=== PATIENT | female | born 1955 | race Caucasian/White ===

== ENCOUNTER 2017-09-09 07:44 | Day surgery (SDC) | payer OTHER ==
[~2017-09-09] VITALS: Ht 149.9 cm; Wt 116.1 kg
[~2017-09-09 07:44] MED LIST: ACEBUTCAFT PO; AMIT25 PO; CHOL10002 PO; CLON.2 PO; CYCL10 PO; DIAZ2 PO; DULO30 PO; FURO40 PO; GABA600 PO; HYDACE5 PO; HYDACE5325 PO; HYDCHL25 PO; IBUP800 PO; LISI20 PO; META800 PO; METO50 PO; METO50ER PO; POTA10T PO
[2018-07-17] MEDS ORDERED: Norco 5-325 Ta1 EACH PO (21:17)
== END 2017-09-09 10:20 | disposition home or self-care (01) ==
LOC: ORSCMMR 07:44
PROVIDERS: Surgery
PROC: 0DBL8ZX Excision of Transverse Colon, Via Natural or Artificial Opening Endoscopic, Diagnostic (ICD-10-PCS; principal; 2017-09-09 09:30)
PROC: 0DBH8ZX Excision of Cecum, Via Natural or Artificial Opening Endoscopic, Diagnostic (ICD-10-PCS; principal; 2017-09-09 09:30)
DX: R19.4 Change in bowel habit (principal); K92.1 Melena; D12.0 Benign neoplasm of cecum; D12.3 Benign neoplasm of transverse colon; K64.8 Other hemorrhoids; I10 Essential (primary) hypertension; G47.33 Obstructive sleep apnea (adult) (pediatric); N18.9 Chronic kidney disease, unspecified; E66.01 Morbid (severe) obesity due to excess calories; Z68.43 Body mass index [BMI] 50.0-59.9, adult
CPT/HCPCS: 88305; J7120

== ENCOUNTER → 2017-12-13 | Outpatient (CLI) | payer OTHER | LOC: LAB SHORT 17:13 → LAB 17:13 | DX: R30.0 Dysuria (principal) | CPT/HCPCS: 87077; 87086; 87186 ==

== ENCOUNTER → 2018-09-20 | Outpatient (CLI) | payer OTHER ==
[~2018-09-20] MED LIST changes: +Norco 5-325 Ta1 EACH PO
[2018-09-20 19:49] LABS: Protein, Urine Random 16.1 mg/dL (0.0-11.9)
[2018-09-20 19:54] LABS: Creatinine, Urine Random 63.5 mg/dL (27.00-270.00)
== END | disposition home or self-care (01) ==
LOC: LAB 08:45 → LAB SHORT 08:45
PROVIDERS: Internal Medicine
DX: I10 Essential (primary) hypertension (principal)
CPT/HCPCS: 82570; 84156

== ENCOUNTER → 2018-10-12 | Outpatient (CLI) | payer OTHER ==
[2018-10-12 15:55] LABS: Bilirubin, Urine Neg (Neg); Blood, Urine Neg (Neg); Glucose Qualitative, Urine Neg (Neg); Ketones, Urine Neg (Neg); Leukocyte Esterase, Urine Neg (Neg); Nitrite, Urine Neg (Neg); Protein, Urine Neg (Neg); Specific Gravity, Urine 1.015 (1.003-1.022); Urobilinogen, Urine NORM (Normal)
[2018-10-12 16:02] LABS: Appearance, Urine Clear (Clear); Color, Urine Yellow (P-Yellow)
== END | disposition home or self-care (01) ==
LOC: LAB SHORT 15:32 → LAB 15:32
PROVIDERS: Internal Medicine
DX: N39.0 Urinary tract infection, site not specified (principal)
CPT/HCPCS: 81003

== ENCOUNTER → 2018-11-18 | Outpatient (CLI) | payer OTHER | LOC: LAB SHORT 11:14 → LAB EV 11:14 | DX: N39.0 Urinary tract infection, site not specified (principal) | CPT/HCPCS: 87077; 87086; 87186 ==

== ENCOUNTER → 2019-03-12 | Outpatient (CLI) | payer OTHER ==
[2019-03-12 15:32] LABS: Protein, Urine Quantitative 22.1 mg/dL (0.0-11.9)
[2019-03-12 15:35] LABS: Microalbumin, Urine Quant. 34.1 mg/L (0.000-20.000)
== END | disposition home or self-care (01) ==
LOC: LAB 12:51 → LAB SHORT 12:51
PROVIDERS: Internal Medicine Nephrology
DX: N18.2 Chronic kidney disease, stage 2 (mild) (principal); D63.1 Anemia in chronic kidney disease; N25.81 Secondary hyperparathyroidism of renal origin; E55.9 Vitamin D deficiency, unspecified; E78.00 Pure hypercholesterolemia, unspecified; R76.9 Abnormal immunological finding in serum, unspecified; R94.5 Abnormal results of liver function studies; R94.6 Abnormal results of thyroid function studies
CPT/HCPCS: 81050; 82043; 82570; 84156

== ENCOUNTER 2020-05-16 14:11 | Emergency (ER) | payer MEDICARE ==
[~2020-05-16] VITALS: Ht 152.4 cm; Wt 115.7 kg
[~2020-05-16 14:11] MED LIST changes: -METO50 PO
[2020-05-16 14:30] LABS: BASOPHILS ABSOLUTE AUTO 0.05 K/mm3 (0.00-0.23); BASOPHILS PERCENT AUTO 1 % (0-2); EOSINOPHILS PERCENT AUTO 3 % (0-6); Hematocrit 45.1 % (33.0-51.0); Hemoglobin 13.9 g/dL (11.5-16.0); IMMATURE GRAN ABSOLUTE AUTO 0.05 K/mm3 (0.00-0.10); IMMATURE GRAN PERCENT AUTO 1 % (0-1); LYMPHOCYTES ABSOLUTE AUTO 1.95 K/mm3 (0.84-5.20); LYMPHOCYTES PERCENT AUTO 27 % (21-46); MONOCYTES ABSOLUTE AUTO 0.66 K/mm3 (0.16-1.47); MONOCYTES PERCENT AUTO 9 % (4-13); Mean Corpuscular HGB 27.7 pg (26.0-34.0); Mean Corpuscular HGB Conc 30.8 g/dL (31.5-36.5); Mean Corpuscular Volume 90 fL (80-100); Mean Platelet Volume 10.2 fL (9.1-12.4); NEUTROPHILS ABSOLUTE AUTO 4.22 K/mm3 (1.96-9.15); NEUTROPHILS PERCENT AUTO 59 % (41-73); Platelet Count 307 K/mm3 (150-400); RDW Coefficient Variation 14.1 % (11.7-14.2); RDW Standard Deviation 46.7 fL (35.1-46.3); Red Blood Cell Count 5.01 M/mm3 (3.80-5.20); White Blood Cell Count 7.13 K/mm3 (4.00-11.30)
[2020-05-16 15:13] LABS: Alanine Aminotransfer (ALT/SGP 37 U/L (12-78); Albumin, Blood 3.3 g/dL (3.4-5.0); Albumin/Globulin Ratio 0.8 (0.8-1.8); Alk Phos 115 U/L (50-136); Anion Gap 5 mmol/L (6-16); Aspartate Aminotrans (AST/SGOT 23 U/L (12-37); Bilirubin, Total 0.4 mg/dL (0.1-1.0); Blood Urea Nitrogen 17 mg/dL (8-24); Bun/Creatinine Ratio 23.6 (12.0-20.0); CO2, Blood 29 mmol/L (21-32); Calcium, Blood 8.8 mg/dL (8.5-10.1); Chloride, Blood 110 mmol/L (98-108); Creatinine, Blood 0.72 mg/dL (0.40-1.00); Globulin, Blood 4.2 g/dL (2.2-4.0); Glomerular Filtration Rate >60 (60-); Glucose, Blood 113 mg/dL (70-99); Potassium, Blood 4.1 mmol/L (3.5-5.5); Sodium, Blood 144 mmol/L (136-145); Total Protein, Blood 7.5 g/dL (6.4-8.2); Troponin I <0.015 ng/mL (0.000-0.040)
[2020-05-16] MEDS ORDERED: DICL75ER PO (15:40)
[2020-05-16] MEDS ORDERED: CYCL10 PO (15:40)
[2020-05-16] MEDS ORDERED: GABA600 PO (15:41)
[2020-05-16] MEDS ORDERED: IBU800 M1 PO (15:43)
[2020-05-16] MEDS ORDERED: METO100 PO (15:44)
[2020-05-16] MEDS ORDERED: ZESTRIL40 M1 PO (15:44)
[2020-05-16] MEDS ORDERED: SPIRONOLACTONE25 MG PO (15:45)
[2020-05-16] MEDS ORDERED: Norco 5-325 Ta1 EACH PO (16:20)
== END 2020-05-16 16:39 | disposition home or self-care (01) ==
LOC: ER 14:11
PROVIDERS: Emergency Medicine
DX: R09.1 Pleurisy (principal); I10 Essential (primary) hypertension; E66.01 Morbid (severe) obesity due to excess calories
CPT/HCPCS: 36415; 71046; 71260; 80053; 83880; 84484; 85025; 85379; 93005; 93010; 99285-25; Q9967

== ENCOUNTER → 2021-05-04 | Outpatient (CLI) | payer MEDICARE ==
[~2021-05-04] MED LIST changes: +DICL75ER PO; +IBU800 M1 PO; +METO100 PO; +SPIRONOLACTONE25 MG PO; +ZESTRIL40 M1 PO
[2021-05-05 16:28] LABS: Adenovirus F 40/41 Not Detected (NOT DETECT); Astrovirus Not Detected (NOT DETECT); Campylobacter Sp Not Detected (NOT DETECT); Cryptosporidium Not Detected (NOT DETECT); Cyclospora Cayetanensis Not Detected (NOT DETECT); E. Coli O157 Not Detected (NOT DETECT); Entamoeba Histolytica Not Detected (NOT DETECT); Enteroaggregative E. coli-EAEC Not Detected (NOT DETECT); Enteropathogenic E. coli-EPEC Not Detected (NOT DETECT); Enterotoxigenic E. coli-ETEC Not Detected (NOT DETECT); Giardia Lamblia Not Detected (NOT DETECT); Norovirus GI/GII Not Detected (NOT DETECT); Plesiomonas Shigelloides Not Detected (NOT DETECT); Rotavirus A Not Detected (NOT DETECT); Salmonella Sp Not Detected (NOT DETECT); Sapovirus Not Detected (NOT DETECT); Shiga Toxin-prod E. coli-STEC Not Detected (NOT DETECT); Shigella/Enteroin E. coli-EIEC Not Detected (NOT DETECT); Vibrio Cholerae Not Detected (NOT DETECT); Vibrio Sp Not Detected (NOT DETECT); Yersinia Enterocolitica Not Detected (NOT DETECT)
== END | disposition home or self-care (01) ==
LOC: LAB 11:58 → LAB SHORT 11:58
PROVIDERS: Internal Medicine Gastroenterology
DX: R19.7 Diarrhea, unspecified (principal)
CPT/HCPCS: 0097U; 83993

== ENCOUNTER 2021-06-01 09:12 | Day surgery (SDC) | payer MEDICARE ==
[~2021-06-01] VITALS: Ht 152.4 cm; Wt 113.2 kg
--- NOTE | 2021-06-01 10:20 | NUR ---
06/01/21 1020 Lisy Muñoz MONITOR INTACT WITH CONTINUOUS PULSE OXIMETRY AND INTERMITTENT BP.
--- NOTE | 2021-06-01 11:35 | NUR ---
Patient up to Ambulate independently. Gait steady. Discharge instructions reviewed with patient. Patient verbalizes understanding. Copy given to patient to take home. Patient States Post-Procedure ride home has been arranged WITH GRANDDAUGHTER. Discharged via wheelchair to private car for ride home.
== END 2021-06-01 11:44 | disposition home or self-care (01) ==
LOC: ORSCMMR 09:12 → ORD 10:30 → ORSCMMR 11:44
PROVIDERS: Internal Medicine Gastroenterology
PROC: 0DBN8ZX Excision of Sigmoid Colon, Via Natural or Artificial Opening Endoscopic, Diagnostic (ICD-10-PCS; principal; 2021-06-01 10:30)
PROC: 0DBM8ZX Excision of Descending Colon, Via Natural or Artificial Opening Endoscopic, Diagnostic (ICD-10-PCS; principal; 2021-06-01 10:30)
PROC: 0DBE8ZX Excision of Large Intestine, Via Natural or Artificial Opening Endoscopic, Diagnostic (ICD-10-PCS; principal; 2021-06-01 10:30)
PROC: 0DBB8ZX Excision of Ileum, Via Natural or Artificial Opening Endoscopic, Diagnostic (ICD-10-PCS; principal; 2021-06-01 10:30)
PROC: 0DB68ZX Excision of Stomach, Via Natural or Artificial Opening Endoscopic, Diagnostic (ICD-10-PCS; principal; 2021-06-01 10:30)
PROC: 0DB98ZX Excision of Duodenum, Via Natural or Artificial Opening Endoscopic, Diagnostic (ICD-10-PCS; principal; 2021-06-01 10:30)
PROC: 0DBK8ZX Excision of Ascending Colon, Via Natural or Artificial Opening Endoscopic, Diagnostic (ICD-10-PCS; principal; 2021-06-01 10:30)
DX: R19.7 Diarrhea, unspecified (principal); K29.50 Unspecified chronic gastritis without bleeding; B96.81 Helicobacter pylori [H. pylori] as the cause of diseases classified elsewhere; K44.9 Diaphragmatic hernia without obstruction or gangrene; D12.2 Benign neoplasm of ascending colon; D12.4 Benign neoplasm of descending colon; K57.30 Diverticulosis of large intestine without perforation or abscess without bleeding; K64.8 Other hemorrhoids; K76.0 Fatty (change of) liver, not elsewhere classified; I10 Essential (primary) hypertension; G47.33 Obstructive sleep apnea (adult) (pediatric); E66.01 Morbid (severe) obesity due to excess calories; Z68.42 Body mass index [BMI] 45.0-49.9, adult; Z79.899 Other long term (current) drug therapy
CPT/HCPCS: 88305; 88342; J2704; J7120

== ENCOUNTER → 2021-06-17 | Outpatient (CLI) | payer MEDICARE | LOC: LAB 17:54 → LAB SHORT 17:54 | DX: R35.0 Frequency of micturition (principal); R30.9 Painful micturition, unspecified; Z88.5 Allergy status to narcotic agent | CPT/HCPCS: 87086; 87147 ==

== ENCOUNTER → 2021-09-16 | Outpatient (CLI) | payer MEDICARE | END | disposition home or self-care (01) | LOC: LAB SHORT 09:30 | DX: R30.9 Painful micturition, unspecified (principal) | CPT/HCPCS: 87077; 87086; 87186 ==

== ENCOUNTER → 2021-10-04 | Outpatient (CLI) | payer MEDICARE | END | disposition home or self-care (01) | LOC: LAB SHORT 13:26 → LAB 13:26 | DX: N39.0 Urinary tract infection, site not specified (principal) | CPT/HCPCS: 87077; 87086; 87186 ==

== ENCOUNTER → 2022-02-09 | Outpatient (CLI) | payer MEDICARE ==
[2022-02-09 12:22] LABS: BASOPHILS ABSOLUTE AUTO 0.05 K/mm3 (0.00-0.23); BASOPHILS PERCENT AUTO 1 % (0-2); EOSINOPHILS ABSOLUTE AUTO 0.22 K/mm3 (0.00-0.68); EOSINOPHILS PERCENT AUTO 3 % (0-6); Hematocrit 45.1 % (33.0-51.0); Hemoglobin 14.5 g/dL (11.5-16.0); IMMATURE GRAN ABSOLUTE AUTO 0.03 K/mm3 (0.00-0.10); IMMATURE GRAN PERCENT AUTO 0 % (0-1); LYMPHOCYTES ABSOLUTE AUTO 1.63 K/mm3 (0.84-5.20); LYMPHOCYTES PERCENT AUTO 23 % (21-46); MONOCYTES ABSOLUTE AUTO 0.52 K/mm3 (0.16-1.47); MONOCYTES PERCENT AUTO 7 % (4-13); Mean Corpuscular HGB 28.5 pg (26.0-34.0); Mean Corpuscular HGB Conc 32.2 g/dL (31.5-36.5); Mean Corpuscular Volume 89 fL (80-100); Mean Platelet Volume 10.1 fL (9.1-12.4); NEUTROPHILS ABSOLUTE AUTO 4.58 K/mm3 (1.96-9.15); NEUTROPHILS PERCENT AUTO 65 % (41-73); Platelet Count 310 K/mm3 (150-400); RDW Standard Deviation 45.4 fL (35.1-46.3); Red Blood Cell Count 5.08 M/mm3 (3.80-5.20); White Blood Cell Count 7.03 K/mm3 (4.00-11.30)
[2022-02-09 12:43] LABS: Albumin, Blood 3.8 g/dL (3.4-5.0); Albumin/Globulin Ratio 0.9 (0.8-1.8); Bilirubin, Total 0.4 mg/dL (0.1-1.0); Bun/Creatinine Ratio 16.3 (12.0-20.0); Calcium, Blood 9.2 mg/dL (8.5-10.1); Creatinine, Blood 0.86 mg/dL (0.40-1.00); Globulin, Blood 4.3 g/dL (2.2-4.0); Potassium, Blood 3.7 mmol/L (3.5-5.5); Thyroid Stimulating Hormone 1.624 uIU/mL (0.360-4.800); Total Protein, Blood 8.1 g/dL (6.4-8.2)
== END | disposition home or self-care (01) ==
LOC: LAB SHORT 12:15 → LAB 12:15
PROVIDERS: Chiropractor
DX: R06.09 Other forms of dyspnea (principal); R53.83 Other fatigue
CPT/HCPCS: 80053; 83880; 84443; 84484; 85025; 85379

== ENCOUNTER → 2022-05-05 | Outpatient (CLI) | payer MEDICARE | END | disposition home or self-care (01) | LOC: LAB 13:15 → LAB SHORT 13:15 | DX: N39.0 Urinary tract infection, site not specified (principal) | CPT/HCPCS: 87077; 87086; 87186 ==

== ENCOUNTER 2022-06-03 22:56 | Observation (INO) | payer MEDICARE ==
[~2022-06-03] VITALS: Ht 152.4 cm; Wt 53.4 kg
[2022-06-03 23:26] LABS: BASOPHILS ABSOLUTE AUTO 0.06 K/mm3 (0.00-0.23); BASOPHILS PERCENT AUTO 1 % (0-2); EOSINOPHILS ABSOLUTE AUTO 0.33 K/mm3 (0.00-0.68); EOSINOPHILS PERCENT AUTO 4 % (0-6); Hematocrit 44.3 % (33.0-51.0); Hemoglobin 14.4 g/dL (11.5-16.0); IMMATURE GRAN ABSOLUTE AUTO 0.04 K/mm3 (0.00-0.10); IMMATURE GRAN PERCENT AUTO 1 % (0-1); LYMPHOCYTES ABSOLUTE AUTO 2.07 K/mm3 (0.84-5.20); LYMPHOCYTES PERCENT AUTO 24 % (21-46); MONOCYTES ABSOLUTE AUTO 0.63 K/mm3 (0.16-1.47); MONOCYTES PERCENT AUTO 7 % (4-13); Mean Corpuscular HGB 28.8 pg (26.0-34.0); Mean Corpuscular HGB Conc 32.5 g/dL (31.5-36.5); Mean Corpuscular Volume 89 fL (80-100); NEUTROPHILS ABSOLUTE AUTO 5.49 K/mm3 (1.96-9.15); NEUTROPHILS PERCENT AUTO 64 % (41-73); Platelet Count 320 K/mm3 (150-400); RDW Coefficient Variation 14.5 % (11.7-14.2); RDW Standard Deviation 46.2 fL (35.1-46.3); White Blood Cell Count 8.62 K/mm3 (4.00-11.30)
[2022-06-03] MEDS ORDERED: FURO20 PO (23:30)
[2022-06-03] MEDS ORDERED: CATAPRES0.2 M1 PO (23:32)
[2022-06-03 23:42] LABS: Albumin, Blood 3.6 g/dL (3.4-5.0); Albumin/Globulin Ratio 0.9 (0.8-1.8); Bilirubin, Total 0.4 mg/dL (0.1-1.0); Bun/Creatinine Ratio 22.2 (12.0-20.0); Calcium, Blood 8.5 mg/dL (8.5-10.1); Creatinine, Blood 0.77 mg/dL (0.40-1.00); Globulin, Blood 4.2 g/dL (2.2-4.0); Potassium, Blood 3.1 mmol/L (3.5-5.5); Total Protein, Blood 7.8 g/dL (6.4-8.2)
[2022-06-04 01:59] LABS: Influenza A, PCR NEGATIVE (NEGATIVE); Influenza B, PCR NEGATIVE (NEGATIVE); Resp Syncytial Virus, PCR NEGATIVE (NEGATIVE); SARS-Cov-2 (COVID-19) PCR, MMC NEGATIVE (NEGATIVE)
[2022-06-04 03:26] LABS: Thyroid Stimulating Hormone 2.15 uIU/mL (0.360-4.800)
[2022-06-04 05:54] LABS: Hematocrit 43.8 % (33.0-51.0); Hemoglobin 13.7 g/dL (11.5-16.0)
--- NOTE | 2022-06-04 05:58 | NUR ---
SHIFT SUMMARY ASSUMED CARE OF PT AT 0340. PT IS A/OX4. HEART SOUNDS REGULAR. LUNG SOUNDS CLEAR. PT STATES SHE HAS A NEW COUGH OF ABOUT A WEEK. PT IS INDEPENDENT WITH CORD ASSIST TO BATHROOM. PT REPORTS CHEST PAIN IS MOSTLY RESOLVED BUT SHE STILL FEELS SOME DISCOMFORT. PT USES CPAP AT [facility], AND SLEPT THIS AM COMFORTABLE. VSS.
[2022-06-04 06:35] LABS: Anion Gap 6 mmol/L (6-16); Blood Urea Nitrogen 15 mg/dL (8-24); Bun/Creatinine Ratio 21.1 (12.0-20.0); CHOL/HDL RATIO 4.6; CO2, Blood 30 mmol/L (21-32); Calcium, Blood 8.2 mg/dL (8.5-10.1); Chloride, Blood 106 mmol/L (98-108); Cholesterol 161 mg/dL (50-200); Creatinine, Blood 0.71 mg/dL (0.40-1.00); Glomerular Filtration Rate 93 (60-); Glucose, Blood 111 mg/dL (70-99); HDL Cholesterol 35 mg/dL (>39); LDL/HDL RATIO 2.6; Low Density Lipoprotein Chol 90 mg/dL (0-110); Potassium, Blood 3.4 mmol/L (3.5-5.5); Sodium, Blood 142 mmol/L (136-145); Triglycerides 178 mg/dL (30-160); Very Low Density Lipoprot Chol 35 mg/dL (6-32)
--- NOTE | 2022-06-04 18:44 | NUR ---
SHIFT SUMMARY PT A/O X4; PLEASANT AND COOPERATIVE WITH CARE. NO C/O CP/PRESSURE/PALPITATIONS THIS SHIFT. HOWEVER, BP ELEVATED AND TREATED PER EMR. ECHOCARDIOGRAM DONE THIS AM. FIRST PART OF TWO PART STRESS TEST DONE THIS AFTERNOON. PT TO BE NPO AT MIDNIGHT IN ORDER TO HAVE THE SECOND PART OF STRESS TEST IN THE AM. CALL LIGHT IN REACH AND PT COMFORTABLE AT THIS TIME.
[2022-06-05 05:12] LABS: BASOPHILS ABSOLUTE AUTO 0.06 K/mm3 (0.00-0.23); BASOPHILS PERCENT AUTO 1 % (0-2); EOSINOPHILS ABSOLUTE AUTO 0.35 K/mm3 (0.00-0.68); EOSINOPHILS PERCENT AUTO 5 % (0-6); Hematocrit 42.3 % (33.0-51.0); Hemoglobin 13.2 g/dL (11.5-16.0); IMMATURE GRAN ABSOLUTE AUTO 0.03 K/mm3 (0.00-0.10); IMMATURE GRAN PERCENT AUTO 0 % (0-1); LYMPHOCYTES ABSOLUTE AUTO 2.15 K/mm3 (0.84-5.20); LYMPHOCYTES PERCENT AUTO 31 % (21-46); MONOCYTES ABSOLUTE AUTO 0.51 K/mm3 (0.16-1.47); MONOCYTES PERCENT AUTO 7 % (4-13); Mean Corpuscular HGB 28.4 pg (26.0-34.0); Mean Corpuscular HGB Conc 31.2 g/dL (31.5-36.5); Mean Corpuscular Volume 91 fL (80-100); Mean Platelet Volume 9.9 fL (9.1-12.4); NEUTROPHILS ABSOLUTE AUTO 3.86 K/mm3 (1.96-9.15); NEUTROPHILS PERCENT AUTO 56 % (41-73); Platelet Count 298 K/mm3 (150-400); RDW Coefficient Variation 14.5 % (11.7-14.2); RDW Standard Deviation 48.9 fL (35.1-46.3); Red Blood Cell Count 4.64 M/mm3 (3.80-5.20); White Blood Cell Count 6.96 K/mm3 (4.00-11.30)
[2022-06-05 05:42] LABS: Bun/Creatinine Ratio 23.4 (12.0-20.0); Calcium, Blood 8.5 mg/dL (8.5-10.1); Creatinine, Blood 0.77 mg/dL (0.40-1.00); Potassium, Blood 3.7 mmol/L (3.5-5.5)
--- NOTE | 2022-06-05 06:23 | NUR ---
SHIFT SUMMARY: PATIENT A&O X4, MEDICATED PER EMAR, O2 STABLE ON RA, AFEBRILE. PATIENT NPO SINCE BEFORE MIDNIGHT. PLAN FOR SECOND PART OF STRESS TEST THIS AM. PLEASANT AND COOPERATIVE WITH CARE. INDEPENDENT IN ROOM. USES CALL LIGHT APPROPRIATELY. BED LOW WITH CALL LIGHT IN REACH. WILL CONTINUE TO MONITOR AND REPORT TO ONCOMING RN.
[2022-06-05] MEDS ORDERED: XARELTO20 MG PO (15:46)
--- NOTE | 2022-06-05 17:23 | NUR ---
DISCHARGE SUMMARY S/P AFIB c RVR, A/O X4, VSS, TOLERATING PO, INDEPENDENT IN ROOM, DENIES PAIN. PT STRESS TEST COMPLETED ADN NEGATIVE TODAY. DISCUSSED DISCHARGE INSTRUCTIONS INCLUDING HOME CARE, MEDICATION CHANGES, FOLLOW UP APPOINTMENTS (PT REPORTS SHE IS GOING TO F/U WITH DOCTOR NORIEGA INSTEAD OF HER PRIMARY CARE), AND CONTACT INFORMATION SHOULD QUESTIONS COME UP AFTER DISCHARGE. PT QUESTIONS ANSWERED TO HER SATISFACTION, IV ACCESS REMOVED, TELEMETRY REMOVED. PT DEPARTED VIA AMBULATION AFTER TURNING DOWN WC ESCORT WITH HER DAUGHTER TO GO HOME.
== END 2022-06-05 16:25 | disposition home or self-care (01) ==
LOC: ER 22:56 → PCU 22:57
PROVIDERS: Emergency Medicine; Internal Medicine; Student in an Organized Health Care Education/Training Program; ADMIT Internal Medicine
DX: R07.89 Other chest pain (principal); I48.0 Paroxysmal atrial fibrillation; I16.0 Hypertensive urgency; I11.0 Hypertensive heart disease with heart failure; I50.30 Unspecified diastolic (congestive) heart failure; E66.01 Morbid (severe) obesity due to excess calories; E87.6 Hypokalemia; G47.33 Obstructive sleep apnea (adult) (pediatric); R09.02 Hypoxemia; R79.1 Abnormal coagulation profile; E78.5 Hyperlipidemia, unspecified; K58.9 Irritable bowel syndrome, unspecified; I83.93 Asymptomatic varicose veins of bilateral lower extremities; I87.2 Venous insufficiency (chronic) (peripheral); Z88.5 Allergy status to narcotic agent; Z68.43 Body mass index [BMI] 50.0-59.9, adult; Z20.822 Contact with and (suspected) exposure to COVID-19
CPT/HCPCS: 0241U; 36415; 71045; 71260; 78452; 80048; 80053; 80061; 83880; 84443; 84484; 85014; 85018; 85025; 85379; 93005; 93010; 93017; 93308; 93321; 94660; 94762; 96372; 96374; 99285-25; A9270; A9500; G0378; J0706; J1644; J2785; J7030; Q9967

== ENCOUNTER → 2024-02-06 | Outpatient (CLI) | payer MEDICARE ==
[~2024-02-06] MED LIST changes: +CATAPRES0.2 M1 PO; +FURO20 PO; +XARELTO20 MG PO
== END ==
LOC: LAB 15:01 → LAB SHORT 15:01
DX: N39.0 Urinary tract infection, site not specified (principal)
CPT/HCPCS: 87077; 87086; 87186

== ENCOUNTER → 2024-05-05 | Outpatient (CLI) | payer MEDICARE | END | disposition home or self-care (01) | LOC: LAB 17:52 → LAB SHORT 17:52 | DX: R30.0 Dysuria (principal) | CPT/HCPCS: 87077; 87086; 87186 ==

== ENCOUNTER → 2024-08-08 | Outpatient (CLI) | payer MEDICARE | END | disposition home or self-care (01) | LOC: LAB 12:50 → LAB SHORT 12:50 | DX: R35.0 Frequency of micturition (principal) | CPT/HCPCS: 87077; 87086; 87186 ==

== ENCOUNTER → 2024-09-14 | Outpatient (CLI) | payer MEDICARE | LOC: LAB SHORT 16:04 → LAB 16:04 | DX: N39.0 Urinary tract infection, site not specified (principal) | CPT/HCPCS: 87077; 87086; 87186 ==

== ENCOUNTER → 2025-01-02 | Outpatient (CLI) | payer MEDICARE ==
[~2025-01-02] MED LIST changes: +Aspir 8181 MG PO; +BUME2 PO; +CEFDINIR300 M4 PO; +CHOLESTYRAMI239.4 G5 PO; +FARXIGA5 MG PO; +FOLI1; +GABA100; +GABA300 PO; +IMODIUM A-D2 M1 PO; +METO100ER PO; +METO25ER PO; +POTCHL20ER; +ROSUVASTATIN CA10 MG PO; +SPIR25 PO; +VISBIOME 112.51 EACH PO
== END ==
LOC: LAB SHORT 17:07 → LAB 17:07
DX: R35.0 Frequency of micturition (principal)
CPT/HCPCS: 87077; 87086; 87186

== ENCOUNTER 2025-01-03 16:23 | Inpatient (IN) | payer MEDICARE ==
[~2025-01-03] VITALS: Ht 152.4 cm; Wt 107.1 kg
[~2025-01-03 16:23] MED LIST changes: -Aspir 8181 MG PO; -BUME2 PO; -CEFDINIR300 M4 PO; -CHOLESTYRAMI239.4 G5 PO; -FARXIGA5 MG PO; -FOLI1; -GABA100; -GABA300 PO; -IMODIUM A-D2 M1 PO; -METO100ER PO; -METO25ER PO; -POTCHL20ER; -ROSUVASTATIN CA10 MG PO; -SPIR25 PO; -VISBIOME 112.51 EACH PO
[2025-01-03 17:04] LABS: BASOPHILS ABSOLUTE AUTO 0.07 K/mm3 (0.00-0.23); BASOPHILS PERCENT AUTO 1 % (0-2); EOSINOPHILS ABSOLUTE AUTO 0.38 K/mm3 (0.00-0.68); EOSINOPHILS PERCENT AUTO 4 % (0-6); Hematocrit 37.9 % (33.0-51.0); Hemoglobin 11.9 g/dL (11.5-16.0); IMMATURE GRAN ABSOLUTE AUTO 0.04 K/mm3 (0.00-0.10); IMMATURE GRAN PERCENT AUTO 0 % (0-1); LYMPHOCYTES ABSOLUTE AUTO 2.54 K/mm3 (0.84-5.20); LYMPHOCYTES PERCENT AUTO 28 % (21-46); MONOCYTES ABSOLUTE AUTO 0.96 K/mm3 (0.16-1.47); MONOCYTES PERCENT AUTO 11 % (4-13); Mean Corpuscular HGB 29.3 pg (26.0-34.0); Mean Corpuscular HGB Conc 31.4 g/dL (31.5-36.5); Mean Corpuscular Volume 93 fL (80-100); Mean Platelet Volume 10.4 fL (9.1-12.4); NEUTROPHILS ABSOLUTE AUTO 5.16 K/mm3 (1.96-9.15); NEUTROPHILS PERCENT AUTO 56 % (41-73); Platelet Count 346 K/mm3 (150-400); RDW Coefficient Variation 14.9 % (11.7-14.2); RDW Standard Deviation 51.8 fL (35.1-46.3); Red Blood Cell Count 4.06 M/mm3 (3.80-5.20); White Blood Cell Count 9.15 K/mm3 (4.00-11.30)
[2025-01-03 17:26] LABS: Albumin, Blood 3.3 g/dL (3.4-5.0); Albumin/Globulin Ratio 0.8 (0.8-1.8); Bilirubin, Total 0.6 mg/dL (0.1-1.0); Bun/Creatinine Ratio 13.2 (12.0-20.0); Calcium, Blood 7.6 mg/dL (8.5-10.1); Creatinine, Blood 3.48 mg/dL (0.40-1.00); Globulin, Blood 4.3 g/dL (2.2-4.0); Magnesium, Blood 1.8 mg/dL (1.6-2.4); Potassium, Blood 5.9 mmol/L (3.5-5.5); Total Protein, Blood 7.6 g/dL (6.4-8.2)
[2025-01-03] MEDS ORDERED: NS 1,000 ML IV SCH ×2 (18:25→23:05)
[2025-01-03 18:55] LABS: Source, Urine Clean Catch
[2025-01-03 19:04] LABS: Appearance, Urine Hazy (Clear); Bilirubin, Urine Neg (Neg); Blood, Urine 2+ (Neg); Glucose Qualitative, Urine Neg (Neg); Ketones, Urine Neg (Neg); Leukocyte Esterase, Urine 3+ (Neg); Nitrite, Urine Pos (Neg); Protein, Urine 1+ (Neg); Specific Gravity, Urine 1.005 (1.003-1.022); Urobilinogen, Urine NORM (Normal)
[2025-01-03 19:12] LABS: Color, Urine Pale Yellow (P-Yellow); White Blood Cells, Urine TNTC /hpf (0-5)
[2025-01-03 19:13] LABS: Bacteria Many /hpf; Squamous Epithelial Cells Rare /hpf (Few)
[2025-01-03] MEDS ORDERED: CefTRIAXone Sodium 1,000 MG in NS 100 ML IV ONE (20:00)
[2025-01-03] MEDS ORDERED: Ondansetron HCl 2 MG / ML 2ML Vial IV PRN (20:10)
[2025-01-03] MEDS ORDERED: Gabapentin 100 MG Cap PO SCH (21:00)
[2025-01-03] MEDS ORDERED: Heparin Sodium,Porcine 5,000 UNIT/0.5 ML SDV SC SCH (21:00)
[2025-01-03] MEDS ORDERED: Lactobacil 2-S.Thermo-Bifido 1 1 Cap PO SCH (21:00)
[2025-01-03 21:58] VITALS: BP 117/65
[2025-01-04] VITALS (8 sets, daily range): BP systolic 98–134; BP diastolic 30–67
[2025-01-04] MEDS ORDERED: GABA300 PO ×4 (02:00→02:01)
[2025-01-04] MEDS ORDERED: POTCHL20ER ×2 (02:03)
[2025-01-04] MEDS ORDERED: METO100ER PO ×2 (02:04)
[2025-01-04] MEDS ORDERED: BUME2 PO ×2 (02:05)
[2025-01-04] MEDS ORDERED: FOLI1 ×2 (02:06)
[2025-01-04] MEDS ORDERED: ROSUVASTATIN CA10 MG PO ×2 (02:07)
[2025-01-04] MEDS ORDERED: FARXIGA5 MG PO ×2 (02:07)
[2025-01-04] MEDS ORDERED: Aspir 8181 MG PO ×2 (02:09)
[2025-01-04] MEDS ORDERED: CYCL10 PO ×2 (02:12)
[2025-01-04] MEDS ORDERED: IMODIUM A-D2 M1 PO ×2 (02:13)
[2025-01-04] MEDS ORDERED: SPIR25 PO ×2 (02:16)
[2025-01-04 05:06] LABS: Hematocrit 37.5 % (33.0-51.0); Hemoglobin 11.7 g/dL (11.5-16.0); Mean Corpuscular HGB 29.8 pg (26.0-34.0); Mean Corpuscular HGB Conc 31.2 g/dL (31.5-36.5); Mean Corpuscular Volume 95 fL (80-100); Mean Platelet Volume 10.9 fL (9.1-12.4); Platelet Count 308 K/mm3 (150-400); RDW Coefficient Variation 14.6 % (11.7-14.2); RDW Standard Deviation 51.7 fL (35.1-46.3); Red Blood Cell Count 3.93 M/mm3 (3.80-5.20); White Blood Cell Count 6.91 K/mm3 (4.00-11.30)
--- NOTE | 2025-01-04 05:12 | NUR ---
SPONGE DIVER / NEW ADMIT NEW ADMIT WITH RAMÍREZ; PT A/OX4. PT TO ROOM AT APROX 2155. PT ARRIVED IN WHEELCHAIR, ABLE TO TRANSFER TO BED WITH MIN ASSIST. PT ABLE TO FOLLOW DIRECTIONS AND ANSWER QUESTIONS APPROPRIATELY. PT IS PLEASANT/COOPERATIVE. DR. NORIEGA CONSULTED AND AT BEDSIDE. DR PLACED NEW ORDER FOR NS AT 75MLS. FLUIDS STARTED. NEW ORDER FOR ABD ULTRASOUND--COMPLETED AT BEDSIDE. PT ORIENTED TO ROOM AND CALL LIGHT. PT DENIES PAIN. PT STATES SHE GETS FREQUENT UTI'S BUT DID NOT HAVE SYMPTOMS SHE NORMALLY HAS. URINE IS CLOUDY. MED REC COMPLETED.
[2025-01-04 05:30] LABS: Albumin/Globulin Ratio 0.7 (0.8-1.8); Bilirubin, Direct 0.2 mg/dL (0.0-0.3); Bilirubin, Indirect 0.4 mg/dL (0.1-0.7); Bilirubin, Total 0.6 mg/dL (0.1-1.0); Bun/Creatinine Ratio 18.6 (12.0-20.0); Creatinine, Blood 2.36 mg/dL (0.40-1.00); Globulin, Blood 4.1 g/dL (2.2-4.0); Magnesium, Blood 1.9 mg/dL (1.6-2.4); Phosphorus, Blood 5.2 mg/dL (2.5-4.9); Total Protein, Blood 7.1 g/dL (6.4-8.2); Uric Acid, Blood 9.8 mg/dL (2.6-6.0)
[2025-01-04] MEDS ORDERED: CEFDINIR300 M4 PO ×2 (11:20)
[2025-01-04] MEDS ORDERED: CHOLESTYRAMI239.4 G5 PO ×2 (11:20)
--- NOTE | 2025-01-04 16:04 | NUR ---
PATIENT EXPRESSES CONCERN WITH COGNITION AFTER CONVINCED THAT SHE ALREADY GOT HER AFTERNOON DOSE OF HEPARIN; STATING "SOMEONE ELSE CAME IN AND GAVE IT TO ME ALREADY." ASSURED THE PATIENT THAT AN ADDITIONAL DOSE WAS NOT GIVEN SINCE THIS MORNING'S DOSE. PATIENT'S DAUGHTER AT BEDSIDE AT THAT TIME AND SHARED THAT THE PATIENT WAS HALLUCINATING THE OTHER DAY THINKING HER GRANDCHILD WAS IN THE HOUSE WHEN HE WASN'T. PT STATES THAT THIS HAS HAPPENED BEFORE AND RECALLS IT BEING WITHIN THIS WEEK OR SO. CALL MADE TO DR. VILLAGOMEZ AND NOTIFIED HIM OF THIS.
--- NOTE | 2025-01-04 16:30 | NUR ---
SHIFT SUMMARY: PATIENT HAS BEEN EATING AND DRINKING WELL. D/C FLUIDS PER DR. NORIEGA AT 1615. PATIENT HAS EXPRESSED SOME COGNITIVE CONCERNS. RN EXPLAINED THAT IT COULD BE DUE TO HER UTI AND/OR METABOLIC IMBALANCES. IF PERSISTENT AFTER UTI CLEARED AND METALBOLIC IMBALANCES IMPROVE; WOULD CONSIDER COGNITIVE TESTING IN PATIENT OR OUTPATIENT. PATIENT AMBULATES WELL ON HER OWN TO AND FROM THE BATHROOM.
--- NOTE | 2025-01-04 16:53 | NUR ---
REVIEW DRINKING WATER TECHNICIAN'S DOCUMENTATION AND AGREEABLE WITH FINDINGS. BASED ON THE INFORMATION STUDENT MENTIONED IN HER SHIFT SUMMARY; INFORMATION RELAYED TO PATIENT ABOUT COGNITIVE CONCERNS, TREATMENT AND CURRENT DIAGNOSIS AND ISSUES WAS AFTER SPEAKING WITH DR. VILLAGOMEZ AND CONSULTING HIM AND THEN RELAYING THE INFORMATION/PLAN TO PATIENT; OKAY PER DR. VILLAGOMEZ
[2025-01-04] MEDS ORDERED: Cyclobenzaprine HCl 10 MG Tab PO PRN (17:50)
[2025-01-04] MEDS ORDERED: Cholestyramine/Aspartame 4 GM Packet PO PRN (18:00)
[2025-01-04] MEDS ORDERED: CefTRIAXone Sodium 1,000 MG in NS 100 ML IV SCH (21:00)
--- NOTE | 2025-01-05 04:09 | NUR ---
SHIFT SUMMARY PT A&Ox4 AND PLEASANT. PT C/O MILD BACK PAIN BUT DECLINED OFFER FOR REPOSITION, PAIN MEDS, OR HEAT THERAPY. IV ABX GIVEN PER EMAR. PT NSR IN THE 70'S ON TELE. PT AMBULATED IN THE [place] WITH A SBA ONCE DURING THE NIGHT. SCD'S IN PLACE TOLERATED BY PT. DR NORIEGA AT BEDSIDE AROUND 0230 AND REPORTED PT OK TO DC IF KIDNEY FUNCTION CONTINUES TO IMPORVE. DR NORIEGA WOULD LIKE TO SEE PT IN HIS OFFICE ON TUESDAY AT 1400. VSS. BED IN LOWEST POSITION AND CALL LIGHT IN REACH.
[2025-01-05 04:27] VITALS: BP 119/61
[2025-01-05 05:49] LABS: Hematocrit 37.7 % (33.0-51.0); Hemoglobin 11.9 g/dL (11.5-16.0)
[2025-01-05 06:16] LABS: Albumin, Blood 3.1 g/dL (3.4-5.0); Anion Gap 11 mmol/L (3-11); Blood Urea Nitrogen 33 mg/dL (8-24); Bun/Creatinine Ratio 20.6 (12.0-20.0); CO2, Blood 23 mmol/L (21-32); Calcium, Blood 7.1 mg/dL (8.5-10.1); Chloride, Blood 107 mmol/L (98-108); Glomerular Filtration Rate 34 (60-); Glucose, Blood 92 mg/dL (70-99); Magnesium, Blood 2.1 mg/dL (1.6-2.4); Phosphorus, Blood 4.1 mg/dL (2.5-4.9); Potassium, Blood 4.7 mmol/L (3.5-5.5); Sodium, Blood 136 mmol/L (136-145)
[2025-01-05 07:14] VITALS: BP 122/61
[2025-01-05] MEDS ORDERED: GABA100 ×2 (08:28)
[2025-01-05] MEDS ORDERED: Aspirin 81 MG TabEC PO SCH (09:00)
[2025-01-05] MEDS ORDERED: Rosuvastatin Calcium 10 MG Tab PO SCH (09:00)
[2025-01-05] MEDS ORDERED: Folic Acid 1 MG TAB PO SCH (09:00)
[2025-01-05] MEDS ORDERED: VISBIOME 112.51 EACH PO ×2 (11:48)
[2025-01-05] MEDS ORDERED: METO25ER PO ×2 (11:56)
== END 2025-01-05 13:00 | disposition home or self-care (01) | DRG 683 ==
LOC: ER 16:23 → ERHOLD 20:09 → MEDS 20:09
PROVIDERS: Emergency Medicine; Internal Medicine Nephrology; Nurse Practitioner Acute Care; ADMIT Internal Medicine
PROC: 5A09357 Assistance with Respiratory Ventilation, Less than 24 Consecutive Hours, Continuous Positive Airway Pressure (ICD-10-PCS; principal; 2025-01-03)
DX: N17.9 Acute kidney failure, unspecified (principal); E87.1 Hypo-osmolality and hyponatremia; I13.0 Hypertensive heart and chronic kidney disease with heart failure and stage 1 through stage 4 chronic kidney disease, or unspecified chronic kidney disease; I50.32 Chronic diastolic (congestive) heart failure; N39.0 Urinary tract infection, site not specified; Z68.42 Body mass index [BMI] 45.0-49.9, adult; E66.01 Morbid (severe) obesity due to excess calories; G47.33 Obstructive sleep apnea (adult) (pediatric); E87.5 Hyperkalemia; I48.0 Paroxysmal atrial fibrillation; E78.5 Hyperlipidemia, unspecified; K58.0 Irritable bowel syndrome with diarrhea; N18.4 Chronic kidney disease, stage 4 (severe); D63.1 Anemia in chronic kidney disease; R31.29 Other microscopic hematuria; I87.2 Venous insufficiency (chronic) (peripheral); Z99.89 Dependence on other enabling machines and devices; Z88.5 Allergy status to narcotic agent; Z79.811 Long term (current) use of aromatase inhibitors; Z79.01 Long term (current) use of anticoagulants; Z79.899 Other long term (current) drug therapy; Z98.890 Other specified postprocedural states; Z90.49 Acquired absence of other specified parts of digestive tract; Z87.19 Personal history of other diseases of the digestive system; Z90.721 Acquired absence of ovaries, unilateral; Z90.710 Acquired absence of both cervix and uterus; Z87.39 Personal history of other diseases of the musculoskeletal system and connective tissue; Z90.89 Acquired absence of other organs
CPT/HCPCS: 36415; 71046; 76770; 80053; 80069; 81001; 82248; 82550; 82947; 83735; 84100; 84484; 84550; 85014; 85018; 85025; 85027; 93005; 93010; 96360; 96361; 99284-25; A9270; J0696; J1644; J7030

== ENCOUNTER 2025-05-30 07:36 | Day surgery (SDC) | payer MEDICARE ==
[~2025-05-30] VITALS: Ht 152.4 cm; Wt 108.1 kg
[~2025-05-30 07:36] MED LIST changes: +Aspir 8181 MG PO; +BUME2 PO; +CEFDINIR300 M4 PO; +CHOLESTYRAMI239.4 G5 PO; +FARXIGA5 MG PO; +FOLI1; +GABA100; +GABA300 PO; +IMODIUM A-D2 M1 PO; +METO100ER PO; +METO25ER PO; +POTCHL20ER; +ROSUVASTATIN CA10 MG PO; +SPIR25 PO; +VISBIOME 112.51 EACH PO
[2025-05-30] MEDS ORDERED: BUME2 (08:16)
[2025-05-30] MEDS ORDERED: ZESTRIL40 M1 (08:18)
[2025-05-30] MEDS ORDERED: K-Dur10 MEQ (08:19)
[2025-05-30] MEDS ORDERED: Lidocaine HCl 4% 5 ML SDA ONE (08:52)
[2025-05-30 09:52] VITALS: BP 166/100
--- NOTE | 2025-05-30 10:05 | NUR ---
05/30/25 [address] CAVANAUGH, METOPROLOL 25MG PO X1 GIVEN AT 1004.
== END 2025-05-30 10:13 | disposition home or self-care (01) ==
LOC: ORSCSDS 07:36
PROVIDERS: Specialist
PROC: 0DB68ZX Excision of Stomach, Via Natural or Artificial Opening Endoscopic, Diagnostic (ICD-10-PCS; principal; 2025-05-30 09:00)
PROC: 0DB98ZX Excision of Duodenum, Via Natural or Artificial Opening Endoscopic, Diagnostic (ICD-10-PCS; principal; 2025-05-30 09:00)
PROC: 0DBM8ZX Excision of Descending Colon, Via Natural or Artificial Opening Endoscopic, Diagnostic (ICD-10-PCS; principal; 2025-05-30 09:00)
PROC: 0DBE8ZX Excision of Large Intestine, Via Natural or Artificial Opening Endoscopic, Diagnostic (ICD-10-PCS; principal; 2025-05-30 09:00)
DX: R19.7 Diarrhea, unspecified (principal); K29.50 Unspecified chronic gastritis without bleeding; D12.4 Benign neoplasm of descending colon; K44.9 Diaphragmatic hernia without obstruction or gangrene; K64.8 Other hemorrhoids; K57.30 Diverticulosis of large intestine without perforation or abscess without bleeding; Z86.0101 Personal history of adenomatous and serrated colon polyps; K74.00 Hepatic fibrosis, unspecified; F32.A Depression, unspecified; I12.9 Hypertensive chronic kidney disease with stage 1 through stage 4 chronic kidney disease, or unspecified chronic kidney disease; N18.9 Chronic kidney disease, unspecified; E21.3 Hyperparathyroidism, unspecified; G47.33 Obstructive sleep apnea (adult) (pediatric); E66.01 Morbid (severe) obesity due to excess calories; Z68.42 Body mass index [BMI] 45.0-49.9, adult; Z79.82 Long term (current) use of aspirin; Z79.899 Other long term (current) drug therapy
CPT/HCPCS: 88305; 88342; A9270; J2003; J2704

== ENCOUNTER → 2025-07-09 | Outpatient (CLI) | payer MEDICARE ==
[~2025-07-09] MED LIST changes: +BUME2; +K-Dur10 MEQ; +ZESTRIL40 M1
== END | disposition home or self-care (01) ==
LOC: LAB 17:08 → LAB SHORT 17:08
DX: R30.0 Dysuria (principal)
CPT/HCPCS: 87077; 87086; 87186